=== PATIENT | male | born 1955 | race African-American/Black ===

== ENCOUNTER 2024-02-26 09:31 | Emergency (ER) | payer MEDICARE, OTHER ==
[~2024-02-26] VITALS: Ht 180.3 cm; Wt 97.7 kg
[2024-02-26] MEDS: cloNIDine HCL 0.1 MG TAB PO ONE (09:58)
[2024-02-26 10:01] VITALS: TEMP 98.2
[2024-02-26 11:26] VITALS: BP 155/96; RESP 16; O2SAT 100
[2024-02-26 11:45] VITALS: PULSE 67
== END 2024-02-26 11:56 | disposition home or self-care (01) ==
LOC: ER 09:31
DX: I10 Essential (primary) hypertension (principal)
CPT/HCPCS: 93005